=== PATIENT | female | born 1980 | race Caucasian/White ===

== ENCOUNTER → 2016-10-10 | Outpatient (CLI) | payer OTHER ==
--- NOTE | 2016-10-10 10:41 | NM ---
EXAMINATION TYPE: NM hepatobiliary w EF DATE OF EXAM: 10/10/2016 9:24 AM COMPARISON: NONE HISTORY: 35 year-old female right upper quadrant pain TECHNIQUE: After the intravenous administration of 5.2 mCi Tc 99m Mebrofenin hepatobiliary scintigrap hy is performed. Immediate images post injection. FINDINGS: There is satisfactory initial accumulation of tracer by the liver. The gallbladder is visualized wit hin 8 minutes. The small bowel activity is noted within 8 minutes. At one hour 8 ounces of oral ens ure plus is given to mimic CCK and gallbladder ejection fraction is calculated at 62 %, in the normal range. Therefore there is no scintigraphic evidence of cystic or common bile duct obstruction to kay ggest acute cholecystitis or gallbladder dyskinesia. IMPRESSION: No scintigraphic evidence for acute/chronic cholecystitis or biliary dyskinesia. Gallbladder ejection fraction of 62%.
== END | disposition home or self-care (01) ==
LOC: RADNMMAIN 06:58
PROVIDERS: ATTEND Internal Medicine
DX: R10.11 Right upper quadrant pain (principal)
CPT/HCPCS: 78226; A9537

== ENCOUNTER 2017-03-06 17:38 | Emergency (ER) | payer OTHER ==
[2017-03-06 18:44] VITALS: BP 139/85; PULSE 93; RESP 20; TEMP 98
--- NOTE | 2017-03-06 19:15 | ED ---
Wound/Laceration HPI - General Chief Complaint: Wound/Laceration Stated Complaint: lac rt thigh Time Seen by Provider: 03/06/17 18:41 Source: patient, family Mode of arrival: ambulatory Limitations: no limitations - History of Present Illness Initial Comments: 36-year-old female patient presented to emergency department today for evaluation of a laceration to her right thigh. Patient states that she was backyard, states that she tripped over a weed whacker and cut her thigh on a dry wall knife. She states she has been able to get the bleeding stopped. She denies hitting her head or losing consciousness. She states that she believes her tetanus is up-to-date within the last 5 years. She denies any bony tenderness or difficulty with range of motion to the leg. Denies any numbness or tingling in the leg. She denies any other injuries. Patient denies any headache, neck pain, back pain, chest pain, shortness of breath, dizziness, weakness, abdominal pain, nausea, vomiting, or difficulties with bowel movements or urination. - Related Data Allergies Allergy/AdvReac Type Severity Reaction Status Date / Time No Known Allergies Allergy Verified 03/06/17 18:44 Review of Systems ROS Statement: Those systems with pertinent positive or pertinent negative responses have been documented in the HPI. ROS Other: All systems not noted in ROS Statement are negative. Past Medical History Past Medical History: GERD/Reflux, Hyperlipidemia Additional Past Medical History / Comment(s): pneumothorax/chest tube when she was 13 History of Any Multi-Drug Resistant Organisms: None Reported Additional Past Surgical History / Comment(s): abdominoplasty, breast augmentation, chest tube Past Psychological History: ADD/ADHD Smoking Status: Never smoker Past Alcohol Use History: Occasional Past Drug Use History: None Reported General Exam Limitations: no limitations General appearance: alert, in no apparent distress, other (This is a well- developed, well-nourished adult female patient in no acute distress. Vital signs upon arrival were temperature 98F, pulse 93, respirations 20, blood pressure 139/85, pulse ox 99% on room air.) Head exam: Present: atraumatic, normocephalic, normal inspection Eye exam: Present: normal appearance, PERRL, EOMI. Absent: scleral icterus, conjunctival injection, periorbital swelling ENT exam: Present: normal exam, normal oropharynx, mucous membranes moist Neck exam: Present: normal inspection, full ROM, other (Nontender, no step-off, no deformity to firm midline palpation of the posterior cervical spine. Full range of motion without pain or limitation.). Absent: tenderness, meningismus, lymphadenopathy Respiratory exam: Present: normal lung sounds bilaterally. Absent: respiratory distress, wheezes, rales, rhonchi, stridor Cardiovascular Exam: Present: regular rate, normal rhythm, normal heart sounds. Absent: systolic murmur, diastolic murmur, rubs, gallop, clicks GI/Abdominal exam: Present: soft, normal bowel sounds. Absent: distended, tenderness, guarding, rebound, rigid Extremities exam: Present: full ROM, normal capillary refill, other (4 cm, gaping laceration to the right anterior thigh, fatty layer involved, no muscle involvement. Skin otherwise is pink, warm, and dry. Cap refill less than 3 seconds. Post tibial pulses are intact and 2+ bilateral.). Absent: tenderness , pedal edema, joint swelling, calf tenderness Back exam: Present: normal inspection, other (Nontender, no step-off, no deformity to firm midline palpation of the thoracic and lumbar vertebrae. Full range of motion without pain or limitation.). Absent: tenderness, vertebral tenderness Neurological exam: Present: alert, oriented X3, CN II-XII intact Psychiatric exam: Present: normal affect, normal mood Skin exam: Present: warm, dry, intact, normal color. Absent: rash Course Vital Signs 03/06/17 18:41 Temperature 98 F Pulse Rate 93 Respiratory 20 Rate Blood Pressure 139/85 O2 Sat by Pulse 99 Oximetry Procedures - Laceration Laceration #1 Consent Obtained: verbal consent Time Out Performed: Yes Indication: laceration Site: lower extremity (Right anterior thigh) Size (cm): 4 Description: linear Depth: simple, single layer (Involves fatty tissue) Anesthetic Used: lidocaine 1% Anesthesia Technique: local infiltration Amount (mls): 10 Pre-repair: irrigated extensively Type of Sutures: nylon Size of Sutures: 4-0 (4 sutures), 5-0 (4 sutures), other (Patient requested smaller sutures to decrease scarring.) Number of Sutures: 8 Technique: simple, interrupted Patient Tolerated Procedure: well, no complications Medical Decision Making - Medical Decision Making 36-year-old female patient presented for evaluation of a laceration to her right anterior thigh. Laceration was repaired after being cleaned. Patient reported she had a tetanus within the last 5 years. She was instructed to return here in 14 days to have the sutures removed. She is instructed to monitor for signs or symptoms of infection. She is instructed to follow-up with her primary care physician for recheck in 1-2 days. She is instructed return here immediately for any new, worsening, or concerning symptoms. She verbalized understanding and agreement with this plan. Disposition Clinical Impression: Laceration of right thigh Disposition: HOME SELF-CARE Condition: Good Instructions: Care For Your Stitches (ED), Laceration (ED) Additional Instructions: Keep area clean and dry. Wash twice daily with warm soap and water. Monitor for signs and symptoms of infection including redness, swelling, drainage of pus , fevers, or chills. Return in 14 days to have his stitches taken out. Follow up with her primary care physician for recheck in 1-2 days. Return here immediately for any new, worsening, or concerning symptoms. Referrals: Tonio Chan MD [Primary Care Provider] - 1-2 days Time of Disposition: 19:15
== END 2017-03-06 19:26 | disposition home or self-care (01) ==
LOC: EC 17:38
DX: S71.111A Laceration without foreign body, right thigh, initial encounter (principal); W26.0XXA Contact with knife, initial encounter; Y92.096 Garden or yard of other non-institutional residence as the place of occurrence of the external cause
CPT/HCPCS: 12002; 99282

== ENCOUNTER → 2017-07-01 | Outpatient (CLI) | payer OTHER ==
[2017-07-01 12:14] LABS: Basophils % (A) 1 %; Eosinophils # (A) 0.1 k/uL (0-0.7); Eosinophils % (A) 1 %; HCT 41.6 % (34.0-46.0); HGB 13.6 gm/dL (11.4-16.0); Lymphocytes # (A) 1.6 k/uL (1.0-4.8); Lymphocytes % (A) 28 %; MCHC 32.7 g/dL (31.0-37.0); MCV 85.9 fL (80.0-100.0); Mean Platelet Volume 6.3; Monocytes # (A) 0.3 k/uL (0-1.0); Monocytes % (A) 5 %; Neutrophils # (A) 3.6 k/uL (1.3-7.7); Neutrophils % (A) 64 %; Platelet Count 332 k/uL (150-450); RBC 4.85 m/uL (3.80-5.40); RDW 12.4 % (11.5-15.5); WBC 5.7 k/uL (3.8-10.6)
== END | disposition home or self-care (01) ==
LOC: LABPAT 11:49
PROVIDERS: ATTEND Obstetrics & Gynecology
DX: Z01.818 Encounter for other preprocedural examination (principal); N92.0 Excessive and frequent menstruation with regular cycle
CPT/HCPCS: 36415; 85025

== ENCOUNTER 2017-07-02 08:24 | Day surgery (SDC) | payer OTHER ==
[2017-06-24 17:15] VITALS: BMI 27.1
--- NOTE | 2017-07-01 17:24 | HP ---
HISTORY AND PHYSICAL Surgery on July 02, 2017. HISTORY OF PRESENT ILLNESS: The patient is a 36-year-old 3, para 2-0-1-2, who presented to the office for her routine annual exam with complaints of significantly increasing menorrhagia with dysmenorrhea. She finds that her cycles are extraordinarily heavy with clots. She has not tolerated hormonal contraceptives in the past and has had a tubal ligation. She additionally occasionally has some intermenstrual spotting. As a result, she had requested treatment with diagnostic hysteroscopy and NovaSure endometrial ablation. Endometrial biopsy performed in the office was benign in nature. PAST MEDICAL HISTORY: Significant for ADHD and a history of a spontaneous pneumothorax in 1992. SURGICAL HISTORY: Significant for D and C in 2006, tubal ligation in 2013 as well as liposuction, abdominoplasty and bilateral breast augmentation surgery in 2013. There were no anesthetic concerns. OBSTETRICAL HISTORY: 3, para 2-0-1-2 with 2 term vaginal deliveries and 1 early miscarriage that required D and C. Method of contraception is tubal ligation. GYNECOLOGIC HISTORY: Unremarkable with no history of any infections to include STDs. FAMILY HISTORY: Noncontributory. SOCIAL HISTORY: The patient is and is a nonsmoker. She works at [employer] and has no other social concerns. CURRENT MEDICATIONS: Include Adderall daily and Protonix daily. ALLERGIES: No known drug allergies. REVIEW OF SYSTEMS: As confined to history of present illness. PHYSICAL EXAMINATION: Vital signs are stable. The patient is afebrile. In general, this is a well- developed, well-nourished white female in no acute distress. Her heart has a regular rhythm and rate without murmur. Her lungs are clear to auscultation bilaterally in all edmond. Her abdomen is nondistended, has normoactive bowel sounds, is soft, nontender, without any palpable masses, hepatosplenomegaly, or hernias. Her extremities without any cyanosis, clubbing, or edema and are nontender to palpation bilaterally. Pelvic examination demonstrates normal external genitalia and BUS with normal vaginal mucosa and cervix. There is no cervical motion tenderness. The uterus is approximately 4-5 weeks in size, mid plane, mobile, nontender, and normal in shape. The adnexa are normal nontender without mass bilaterally. ASSESSMENT AND PLAN: Menorrhagia: We discussed multiple different options for treatment and the patient has requested diagnostic hysteroscopy with NovaSure endometrial ablation. The risks and complications of the procedure have been entirely discussed including the risks for bleeding, bleeding requiring transfusion, infection, and injury to local structures to specifically include uterine perforation, Asherman syndrome, and subsequent hematometra. She has understood all of these concerns and has agreed to proceed. At this time, we are scheduled for the above procedure on the morning of Sunday, July 02, 2017. MMODL / IJN: [id number] /
[~2017-07-02 08:24] MED LIST: DEXAMETHASONE SOD PHOSPHATE 10 MG/ML 1 ML VIAL IV ONE; HYDROmorphone 0.5 MG/0.5 ML SYRINGE IVP PRN; LACTATED RINGERS 1,000 ML IV SCH; LIDOCAINE 1% 20 ML VIAL (10MG/ML) FOR IV START INTRADERMA PRN; ONDANSETRON 4 MG/2 ML VIAL IVP ONE; Pre Op ABX Message 1 EACH MISC MISCELLANE ONE; SCOPOLAMINE 1.5MG/72HR PATCH TRANSDERM ONE
[2017-07-02 09:28] VITALS: RESP 16
[2017-07-02] MEDS ORDERED: LACTATED RINGERS 1,000 ML IV ONE ×2 (09:36)
[2017-07-02] MEDS ORDERED: Acetaminophen-Codeine 300-30mg TAB PO PRN ×2 (10:08)
[2017-07-02] MEDS ORDERED: diphenhydrAMINE 50 MG/ML 1 ML VIAL IVP PRN (10:08)
[2017-07-02] MEDS ORDERED: ONDANSETRON 4 MG/2 ML VIAL IVP PRN (10:08)
[2017-07-02] MEDS ORDERED: SIMETHICONE 80 MG CHEWABLE PO PRN (10:08)
[2017-07-02] MEDS ORDERED: METOCLOPRAMIDE 5 MG/ML 2 ML VIAL IVP PRN (10:08)
[2017-07-02] MEDS ORDERED: KETOROLAC 30 MG/ML 1 ML VIAL IVP PRN (10:08)
[2017-07-02] MEDS ORDERED: IBUPROFEN 600 MG TAB PO PRN (10:08)
[2017-07-02] MEDS ORDERED: LIDOCAINE 1% INJ 10MG/ML (20 ML MDV) ONE (10:13)
[2017-07-02] MEDS ORDERED: SUCCINYLCHOLINE CHLORIDE 100 MG/5 ML SYR IV ONE (10:13)
[2017-07-02] MEDS ORDERED: MIDAZOLAM 2 MG/2 ML VIAL ONE (10:13)
[2017-07-02] MEDS ORDERED: PROPOFOL 10 MG/ML 20 ML VIAL IV ONE (10:13)
[2017-07-02] MEDS ORDERED: fentaNYL (PF) 50 MCG/ML 2 ML AMP ONE (10:13)
[2017-07-02] MEDS ORDERED: KETOROLAC 30 MG/ML 1 ML VIAL ONE (10:13)
[2017-07-02] MEDS ORDERED: LACTATED RINGERS 1,000 ML IV SCH (10:15)
--- NOTE | 2017-07-02 10:44 | P.OP ---
Date of Procedure: 07/02/17 Preoperative Diagnosis: #1. Menorrhagia Postoperative Diagnosis: Same Procedure(s) Performed: #1. Diagnostic hysteroscopy #2. Endometrial curettage #3. NovaSure endometrial ablation Anesthesia: [facility] Surgeon: Martin Borjas Estimated Blood Loss (ml): 5 IV fluids (ml): 300 Urine output (ml): 80 Pathology: other (Endometrial curettings) Condition: stable Disposition: PACU Operative Findings: Preoperative pelvic examination demonstrated a roughly 5 week slightly anteverted mobile normal shaped uterus with normal adnexa bilaterally. Intraoperatively, the uterus sounded to approximately 8 cm while the cervix was approximately 3.5 cm. Using the hysteroscope, the bilateral tubal ostia regions were seen but there was a fairly significant amount of shaggy tissue throughout the fundus of the uterus obscuring actual view of the ostia. Given the degree of tissue seen, the decision was made to proceed with curettage prior to ablation. Sharp curettage did produce a small to moderate amount of tissue which was sent to pathology for diagnoses though the preoperative biopsy was benign. The settings for the NovaSure tool where a length of 5.5 cm, a width of 4.2 cm, and a total power 127 W. The run lasted for 68 seconds after which time the base unit read "procedure complete." The postprocedural hysteroscopic result appeared excellent. The patient is a candidate for vaginal hysterectomy should it become necessary in the future. Description of Procedure: The patient was prepped and draped in usual fashion after general endotracheal anesthesia was administered by the anesthesiologist. A weighted speculum was placed in the vagina and the bladder drained of approximately 80 mL of clear viviane urine. The anterior lip of the cervix was grasped with a single-tooth tenaculum and the cervix noted to be already dilated enough to admit the diagnostic hysteroscope. The scope was placed to the fundus and thorough hysteroscopy carried out demonstrating a fairly significant amount of shaggy tissue throughout the endometrial cavity, particularly in the fundus. The tubal regions were seen though the ostia were not directly visualized secondary to the amount of endometrial tissue. I decision was made proceed with curettage. A #19 Hanks dilator was easily introduced through the cervix. A sharp curette was then introduced to the fundus and thorough circumferential curettage carried out onto a Telfa in the vagina. The tissue was sent to pathology for diagnoses. The NovaSure tool was placed into the endometrial cavity, opened, and seated well. The settings for the tool were as noted above with a length of 5.5 cm, a width of 4.2 cm, and a total power of 127 W. The cavity check was attempted and passed without difficulty. The tool was enabled and the run was started. After a total run time was 68 seconds, the tool disengaged and the base unit read "procedure complete.". The tool was closed, removed, and discarded. The diagnostic scope was replaced and the endometrial cavity with superior findings as noted above. All instrumentation was then removed. There was a small amount of bleeding from each of the tenaculum sites which was made hemostatic with pressure. Estimated blood loss for the entire case was less than 5 mL. There are no complications. All sponge, instrument, and needle counts were correct. The patient tolerated the procedure well and proceeded to the recovery room in stable condition.
[2017-07-02 11:04] VITALS: TEMP 97
[2017-07-02 12:02] VITALS: BP 124/85; PULSE 55
== END 2017-07-02 12:08 | disposition home or self-care (01) ==
LOC: OR 08:24
PROVIDERS: ATTEND Obstetrics & Gynecology
DX: N92.0 Excessive and frequent menstruation with regular cycle (principal); N94.6 Dysmenorrhea, unspecified; Z98.51 Tubal ligation status; K21.9 Gastro-esophageal reflux disease without esophagitis; F90.9 Attention-deficit hyperactivity disorder, unspecified type; Z79.899 Other long term (current) drug therapy
CPT/HCPCS: 81025; 88305; 58563; J2250; J1100; J2405; J2001; J3010; J1885; J0330; J2704

== ENCOUNTER → 2019-06-30 | Outpatient (CLI) | payer OTHER ==
--- NOTE | 2019-06-30 12:29 | US ---
EXAMINATION TYPE: US mass soft tissue chest/back DATE OF EXAM: 06/30/2019 COMPARISON: NONE CLINICAL HISTORY: M79.89. Patient states she has recently felt 3 small lumps on her right and left lo wer back and RUQ. Left lower back/flank palpable area: superficial 1.2 x 0.9 x 1.3cm isoechoic area seen Right lower back/flank palpable area: no distinct area seen at this time RUQ intercostal palpable area: superficial 2.3 x 0.9 x 2.0cm isoechoic area seen IMPRESSION: Round area left lower back/flank and right upper quadrant are localized just below the c utaneous layer within the subcutaneous fat and isoechoic to adjacent subcutaneous fat. Focal subcutan eous lipoma strongly favored. No suspicious vascularity or shadowing noted.
== END | disposition home or self-care (01) ==
LOC: RADUSWWP 10:59
PROVIDERS: ATTEND Family Medicine
DX: M79.89 Other specified soft tissue disorders (principal)

== ENCOUNTER → 2020-07-19 | Outpatient (CLI) | payer OTHER ==
--- NOTE | 2020-07-20 10:51 | MM ---
Reason for exam: screening (asymptomatic). Last mammogram was performed 5 years and 4 months ago. History: Saline implants in both breasts, 2014. Took hormonal contraceptives for 7 years. Physical Findings: A clinical breast exam by your physician is recommended on an annual basis and results should be correlated with mammographic findings. MG 3D Screen Mammo Imp/Cad Bilateral CC, MLO, and ID view(s) were taken. Prior study comparison: March 30, 2015, bilateral MG 3d screen mammo imp/cad. There are scattered fibroglandular densities. No significant changes when compared with prior studies. ASSESSMENT: Benign, BI-RAD 2 RECOMMENDATION: Routine screening mammogram of both breasts in 1 year.
== END | disposition home or self-care (01) ==
LOC: RADMAMWWP 10:50
PROVIDERS: ATTEND Family Medicine
DX: Z12.31 Encounter for screening mammogram for malignant neoplasm of breast (principal); Z98.82 Breast implant status
CPT/HCPCS: 77063; 77067

== ENCOUNTER → 2020-12-13 | Day surgery (SDC) | payer OTHER ==
[2020-12-08 12:35] VITALS: BMI 29.9
[~2020-12-13] MED LIST changes: -DEXAMETHASONE SOD PHOSPHATE 10 MG/ML 1 ML VIAL IV ONE; -HYDROmorphone 0.5 MG/0.5 ML SYRINGE IVP PRN; +LACTATED RINGERS 1,000 ML IV ONE; -LACTATED RINGERS 1,000 ML IV SCH; -LIDOCAINE 1% 20 ML VIAL (10MG/ML) FOR IV START INTRADERMA PRN; -ONDANSETRON 4 MG/2 ML VIAL IVP ONE; +PROPOFOL 10 MG/ML 20 ML VIAL IV ONE; -Pre Op ABX Message 1 EACH MISC MISCELLANE ONE; -SCOPOLAMINE 1.5MG/72HR PATCH TRANSDERM ONE; +fentaNYL (PF) 50 MCG/ML 2 ML AMP ONE
[2020-12-13 08:57] VITALS: TEMP 97.4
--- NOTE | 2020-12-13 09:33 | P.GSHP ---
History of Present Illness H&P Date: 12/13/20 Chief Complaint: GERD Patient here today for upper endoscopy. Patient with history of chronic reflux. She is currently taking omeprazole 40 mg daily. Some breakthrough symptoms with that. No dysphagia. Last EGD 2011 showed GERD and reflux esophagitis. Past Medical History Past Medical History: GERD/Reflux, Hyperlipidemia, Hypertension Additional Past Medical History / Comment(s): Spontaneous pneumothorax/chest tube when she was 13. History of Any Multi-Drug Resistant Organisms: None Reported Past Surgical History: Breast Surgery, Tubal Ligation, Uterine Ablation Additional Past Surgical History / Comment(s): abdominoplasty, breast augmentation, chest tube, D&C, EGD Past Anesthesia/Blood Transfusion Reactions: Family History of Problems w/ Anesthesia, Motion Sickness, Postoperative Nausea & Vomiting (PONV) Additional Past Anesthesia/Blood Transfusion Reaction / Comment(s): Mother has PONV Smoking Status: Never smoker - Past Family History Mother Family Medical History: Cancer, Deep Vein Thrombosis (DVT), Pulmonary Embolus Additional Family Medical History / Comment(s): Melanoma Father Family Medical History: Deep Vein Thrombosis (DVT), Pulmonary Embolus Brother(s) Family Medical History: Deep Vein Thrombosis (DVT) Medications and Allergies Home Medications Medication Instructions Recorded Confirmed Type Dextroamphetamine/Amphetamine 10 mg PO DAILY@1200 06/24/17 12/08/20 History [Adderall] Dextroamphetamine/Amphetamine 20 mg PO DAILY 06/24/17 12/08/20 History [Adderall] Omeprazole [PriLOSEC] 40 mg PO [id number] 06/24/17 12/08/20 History Atorvastatin [Lipitor] 40 mg PO HS 12/08/20 12/08/20 History Hydrochlorothiazide 12.5 mg PO DAILY PRN 12/08/20 12/08/20 History [hydroCHLOROthiazide] Allergies Allergy/AdvReac Type Severity Reaction Status Date / Time No Known Allergies Allergy Verified 12/08/20 12:20 Surgical - Exam Vital Signs Temp Pulse Resp BP Pulse Ox 97.4 F L 83 18 150/89 98 12/13/20 08:56 12/13/20 08:56 12/13/20 08:56 12/13/20 08:56 12/13/20 08:56 Physical exam: General: Well-developed, well-nourished HEENT: Normocephalic, sclerae nonicteric Abdomen: Nontender, nondistended Extremities: No edema Neuro: Alert and oriented Assessment and Plan (1) GERD (gastroesophageal reflux disease) Narrative/Plan: Will proceed with upper endoscopy Current Visit: Yes Status: Acute Code(s): K21.9 - GASTRO-ESOPHAGEAL REFLUX DISEASE WITHOUT ESOPHAGITIS SNOMED Code(s): 508995767
--- NOTE | 2020-12-13 09:43 | P.PCN ---
Date of Procedure: 12/13/20 Procedure(s) Performed: Preoperative Dx: GERD Postoperative Dx: Gastritis, hiatal hernia, distal esophagitis Procedure: EGD with Bx Anesthesia: Sedation Endoscopist: Dr. Tate Specimens:, Distal esophagus Endoscopic Procedure: The patient was on the endoscopy table in the left decubitus position. The Olympus gastroscope was inserted into the oropharynx and passed under direct visualization to the region of the third portion of the duodenum. From that point the scope was slowly withdrawn inspecting all surfaces carefully. There were no neoplastic inflammatory or polypoid lesions throughout the duodenum. The pylorus was widely patent. The stomach was carefully inspected. There was gastritis present. A biopsy of the antrum took place to rule out H. pylori. Retroflexion revealed a small moderate size hiatal hernia. The scope was withdrawn into the esophagus. The GE junction was present 3 cm above the diaphragmatic hiatus. Just above the GE junction there were 3 small linear erosions present measuring less than 1 cm. These were non- circumferential. The remainder the esophagus appeared normal. The patient was then taken to the recovery room in stable condition per anesthesia guidelines. Recommendations: Await biopsy results. Continue antiacid therapy. Will discuss surgical options further with the patient
[2020-12-13 10:11] VITALS: RESP 16
[2020-12-13 10:12] VITALS: BP 117/78; PULSE 65
== END ==
LOC: ORWHC2ENDO 08:40
PROVIDERS: ATTEND Surgery
DX: K21.00 Gastro-esophageal reflux disease with esophagitis, without bleeding (principal); K29.50 Unspecified chronic gastritis without bleeding; K44.9 Diaphragmatic hernia without obstruction or gangrene; E78.5 Hyperlipidemia, unspecified; I10 Essential (primary) hypertension; Z79.899 Other long term (current) drug therapy; Z80.9 Family history of malignant neoplasm, unspecified; K64.9 Unspecified hemorrhoids
CPT/HCPCS: 43239; 81025; 88305; J3010; J2704

== ENCOUNTER → 2021-04-05 | Outpatient (CLI) | payer OTHER ==
--- NOTE | 2021-04-05 14:33 | XR ---
EXAMINATION TYPE: XR ribs LT DATE OF EXAM: 04/05/2021 COMPARISON: None HISTORY: Left rib pain TECHNIQUE: 2 view left RIBS FINDINGS: No acute fractures are evident. No pneumothorax is evident on these images. IMPRESSION: 1. Normal two-view left RIBS
== END | disposition home or self-care (01) ==
LOC: RADXRMAIN 10:22
PROVIDERS: ATTEND Internal Medicine
DX: R07.81 Pleurodynia (principal)

== ENCOUNTER 2023-05-11 20:43 | Emergency (ER) | payer OTHER ==
[2023-05-11 21:14] VITALS: TEMP 97.8
[2023-05-11] MEDS ORDERED: KETOROLAC 15 MG/ML 1 ML VIAL IVP STA (23:13)
[2023-05-11] MEDS ORDERED: ONDANSETRON 4 MG/2 ML VIAL IVP STA (23:13)
[2023-05-11] MEDS ORDERED: SODIUM CHLORIDE 0.9% 1,000 ML IV STA (23:13)
[2023-05-12 00:12] LABS: Basophils # (A) 0.1 k/uL (0-0.2); Basophils % (A) 0 %; Eosinophils # (A) 0.1 k/uL (0-0.7); Eosinophils % (A) 1 %; HCT 42.8 % (34.0-46.0); HGB 14.4 gm/dL (11.4-16.0); Lymphocytes # (A) 2.1 k/uL (1.0-4.8); Lymphocytes % (A) 18 %; MCH 28.3 pg (25.0-35.0); MCHC 33.5 g/dL (31.0-37.0); MCV 84.4 fL (80.0-100.0); Mean Platelet Volume 7.1; Monocytes # (A) 0.6 k/uL (0-1.0); Monocytes % (A) 5 %; Neutrophils # (A) 8.7 k/uL (1.3-7.7); Neutrophils % (A) 74 %; Platelet Count 377 k/uL (150-450); RBC 5.07 m/uL (3.80-5.40); WBC 11.7 k/uL (3.8-10.6)
[2023-05-12 00:20] LABS: Potassium 4.1 mmol/L (3.5-5.1)
[2023-05-12 00:22] LABS: AST 28 U/L (14-36); African American GFR (CKD) >90 (>60 ml/min/1.73 sqM); Albumin 4.8 g/dL (3.5-5.0); Alkaline Phosphatase 56 U/L (38-126); Amylase 73 U/L (30-110); Anion Gap 12 mmol/L; Blood Urea Nitrogen 18 mg/dL (7-17); Calcium 10.1 mg/dL (8.4-10.2); Carbon Dioxide 27 mmol/L (22-30); Chloride 101 mmol/L (98-107); Glucose 108 mg/dL (74-99); Lipase 114 U/L (23-300); Non-African American GFR(CKD) 83 (>60 ml/min/1.73 sqM); Sodium 140 mmol/L (137-145); Total Bilirubin 0.7 mg/dL (0.2-1.3); Total Protein 7.9 g/dL (6.3-8.2)
[2023-05-12 00:23] LABS: ALT 30 U/L (4-34)
[2023-05-12 00:40] LABS: Appearance,Urine HAZY (Clear); Color,Urine Yellow
[2023-05-12 00:41] LABS: Bilirubin,Urine Negative (Negative); Blood,Urine Large (Negative); Glucose,Urine (UA) Negative (Negative); Ketones,Urine Trace (Negative); Leukocyte Esterase,Urine Moderate (Negative); Nitrite,Urine Negative (Negative); PH, Urine 5.5 (5.0-8.0); Protein,Urine 1+ (Negative); Urobilinogen,Urine 0.2 mg/dL (<2.0)
[2023-05-12 00:44] LABS: Amorphous Sediment,Urine Occasional /hpf; Bacteria,Urine Moderate /hpf; Calcium Oxalate Crystals,Urine Occasional /hpf; Hyaline Casts,Urine 4 /lpf (0-2); RBC,Urine 2 /hpf (0-5); Squamous Epithelial Cell,Urine 4 /hpf (0-4); WBC,Urine 13 /hpf (0-5)
[2023-05-12 00:45] LABS: Mucus,Urine Many /hpf
--- NOTE | 2023-05-12 02:05 | CT ---
EXAM: CT Abdomen and Pelvis With Intravenous Contrast CLINICAL HISTORY: RLQ abdominal pain TECHNIQUE: Axial computed tomography images of the abdomen and pelvis with intravenous contrast. CTDI is 29.8 mGy and DLP is 1382.8 mGy-cm. This CT exam was performed using one or more of the following dose reduction techniques: automated exposure control, adjustment of the mA and/or kV according to patient size, and/or use of iterative reconstruction technique. COMPARISON: No relevant prior studies available. FINDINGS: Lung bases: Unremarkable. No mass. No consolidation. ABDOMEN: Liver: Unremarkable. No mass. Gallbladder and bile ducts: Unremarkable. No calcified stones. No ductal dilation. Pancreas: Unremarkable. No mass. No ductal dilation. Spleen: Unremarkable. No splenomegaly. Adrenals: Unremarkable. No mass. Kidneys and ureters: Unremarkable. No solid mass. No hydronephrosis. Stomach and bowel: No bowel obstruction. No asymmetric bowel mucosal abnormality. Mild stool burden. No diverticulitis. PELVIS: Appendix: A normal caliber appendix is noted extending inferiorly from the cecum in the right lower quadrant. No periappendiceal fat stranding. Bladder: Unremarkable. No mass. Reproductive: Uterus is normal in caliber with hypoattenuating areas of the fundus measuring up to 1.6 x 2.3 x 2.2 cm near the region of the left cornea. No adnexal cystic changes. ABDOMEN and PELVIS: Intraperitoneal space: Unremarkable. No free air. No significant fluid collection. Bones/joints: No acute fracture. No dislocation. Soft tissues: Unremarkable. Vasculature: Unremarkable. No abdominal aortic aneurysm. Lymph nodes: Unremarkable. No enlarged lymph nodes. IMPRESSION: 1. A normal caliber appendix is noted extending inferiorly from the cecum in the right lower quadrant. No periappendiceal fat stranding. 2. No bowel obstruction. No asymmetric bowel mucosal abnormality. Mild stool burden. No diverticulitis. No free intraperitoneal fluid or pneumoperitoneum. 3. Uterus is normal in caliber with hypoattenuating areas of the fundus measuring up to 1.6 x 2.3 x 2.2 cm near the region of the left cornea. This may represent a poorly vascularized fibroids or cystic changes in the endometrium. No hydrosalpinx suspected. No ovarian or adnexal cysts. The clinical significance of this finding is indeterminant.
--- NOTE | 2023-05-12 02:15 | ED ---
Abdominal Pain HPI - General Chief Complaint: Abdominal Pain Stated Complaint: Abdominal Pain Time Seen by Provider: 05/11/23 22:59 Source: patient Mode of arrival: ambulatory Limitations: no limitations - History of Present Illness Initial Comments: 42-year-old female presenting with chief complaint of right lower quadrant pain. Patient states that the pain started yesterday, pain was worse yesterday, however the ER it had a long wait time and she did not want to wait to be evaluated so she decided to come back today, she states that the pain has improved today. Patient states that she has had this pain in the past and it has been intermittent for the last year. Admits to nausea. No fever, chills, vomiting, diarrhea, vaginal bleeding or discharge, chest pain, difficulty breathing, injury or trauma. She currently has a UTI and is being treated with Macrobid. - Related Data Home Medications Medication Instructions Recorded Confirmed Dextroamphetamine/Amphetamine 10 mg PO DAILY@1200 06/24/17 12/08/20 [Adderall] Dextroamphetamine/Amphetamine 20 mg PO DAILY 06/24/17 12/08/20 [Adderall] Omeprazole [PriLOSEC] 40 mg PO AC-BRKFST 06/24/17 12/08/20 Atorvastatin [Lipitor] 40 mg PO HS 12/08/20 12/08/20 hydroCHLOROthiazide 12.5 mg PO DAILY PRN 12/08/20 12/08/20 Allergies Allergy/AdvReac Type Severity Reaction Status Date / Time No Known Allergies Allergy Verified 05/11/23 20:54 Review of Systems ROS Statement: Those systems with pertinent positive or pertinent negative responses have been documented in the HPI. ROS Other: All systems not noted in ROS Statement are negative. Past Medical History Past Medical History: GERD/Reflux, Hyperlipidemia, Hypertension Additional Past Medical History / Comment(s): Spontaneous pneumothorax/chest tube when she was 13. History of Any Multi-Drug Resistant Organisms: None Reported Past Surgical History: Breast Surgery, Tubal Ligation, Uterine Ablation Additional Past Surgical History / Comment(s): abdominoplasty, breast augmentation, chest tube, D&C, EGD Past Anesthesia/Blood Transfusion Reactions: Family History of Problems w/ Anesthesia, Motion Sickness, Postoperative Nausea & Vomiting (PONV) Additional Past Anesthesia/Blood Transfusion Reaction / Comment(s): Mother has PONV Past Psychological History: ADD/ADHD Smoking Status: Never smoker Past Alcohol Use History: Occasional Past Drug Use History: None Reported - Past Family History Mother Family Medical History: Cancer, Deep Vein Thrombosis (DVT), Pulmonary Embolus Additional Family Medical History / Comment(s): Melanoma Father Family Medical History: Deep Vein Thrombosis (DVT), Pulmonary Embolus Brother(s) Family Medical History: Deep Vein Thrombosis (DVT) General Exam Limitations: no limitations General appearance: alert, in no apparent distress Head exam: Present: atraumatic, normocephalic, normal inspection Eye exam: Present: normal appearance, EOMI Neck exam: Present: normal inspection, full ROM Respiratory exam: Present: normal lung sounds bilaterally. Absent: respiratory distress, wheezes, rales, rhonchi, stridor Cardiovascular Exam: Present: regular rate, normal rhythm, normal heart sounds. Absent: systolic murmur, diastolic murmur, rubs, gallop, clicks GI/Abdominal exam: Present: soft, tenderness (Lower abdomen). Absent: distended, guarding, rebound, rigid Neurological exam: Present: alert, oriented X3 Psychiatric exam: Present: normal affect, normal mood Skin exam: Present: warm, dry, intact, normal color. Absent: rash Course Vital Signs 05/11/23 05/12/23 20:52 02:22 Temperature 97.8 F Pulse Rate 107 H 69 Respiratory 20 16 Rate Blood Pressure 124/71 131/81 O2 Sat by Pulse 100 96 Oximetry Medical Decision Making - Medical Decision Making Was pt. sent in by a medical professional or institution (, PA, PERSONAL SHOPPER, urgent care, hospital, or jail...) When possible be specific @ -No Did you speak to anyone other than the patient for history (EMS, parent, family, police, friend...)? What history was obtained from this source @ -No Did you review nursing and triage notes (agree or disagree)? Why? @ -I reviewed and agree with nursing and triage notes Were old charts reviewed (outside hosp., previous admission, EMS record, old EKG, old radiological studies, urgent care reports/EKG's, jail records)? Report findings @ -No old charts were reviewed Differential Diagnosis (chest pain, altered mental status, abdominal pain women, abdominal pain men, vaginal bleeding, weakness, fever, dyspnea, syncope, headache, dizziness, GI bleed, back pain, seizure, CVA, palpatations, mental health, musculoskeletal)? @ -[facility] Differential Abdominal Pain Women: Appendicitis, Cholecystitis, diverticulosis, ischemic bowel, pancreatitis, hepatitis, UTI, gastroenteritis, AAA, incarcerated hernia, bowel obstruction, constipation, inflammatory bowel, hepatitis, peptic ulcer disease, splenic infa rction, perforated viscus, vulvitis, ovarian torsion, PID, kidney stone, placenta abruption... This is not meant to be an all-inclusive list EKG interpreted by me (3pts min.). @ -As above X-rays interpreted by me (1pt min.). @ -None done CT interpreted by me (1pt min.). @ -A normal-caliber appendix is noted extending inferiorly from the cecum in the right lower quadrant. No periappendiceal fat stranding. No bowel obstruction. No asymmetry bowel mucosal abnormality. Mild stool Birden. No diverticulitis. No free intraperitoneal fluid or pneumoperitoneum. Uterus is normal in caliber with hypoattenuating areas of the fundus measuring up to 1.6 x 2.3 x 2.2 cm near the region of the left cornea. This may represent a poorly vascularized fibroids or cystic changes in the endometrium. No hydrosalpinx suspected. No ovarian or adnexal cysts. U/S interpreted by me (1pt. min.). @ -None done What testing was considered but not performed or refused? (CT, X-rays, U/S, labs)? Why? @ -None What meds were considered but not given or refused? Why? @ -None Did you discuss the management of the patient with other professionals (professionals i.e. , PA, PERSONAL SHOPPER, lab, RT, psych nurse, vp digital marketing social media and crm, communication skills instructor, teacher, custom protection officer, assistant case manager)? Give summary @ -No Was smoking cessation discussed for >3mins.? @ -No Was critical care preformed (if so, how long)? @ -No Were there social determinants of health that impacted care today? How? (Homelessness, low income, unemployed, alcoholism, drug addiction, transportation, low edu. Level, literacy, decrease access to med. care, fpc, rehab)? @ -No Was there de-escalation of care discussed even if they declined (Discuss DNR or withdrawal of care, Hospice)? DNR status @ -No What co-morbidities impacted this encounter? (DM, HTN, Smoking, COPD, CAD, Cancer, CVA, ARF, Chemo, Hep., AIDS, mental health diagnosis, sleep apnea, morbid obesity)? @ -None Was patient admitted / discharged? Hospital course, mention meds given and route, prescriptions, significant lab abnormalities, going to OR and other pertinent info. @ -42-year-old female presenting with chief complaint of right lower quadrant pain. Patient is currently being treated for UTI with Macrobid. History and physical exam were conducted. WBC 11.7. BUN 18. Urine shows signs of UTI p atient is a [address] shows no signs of appendicitis. There are areas that may represent fibroids or cystic changes to the endometrium. Patient is educated on today's findings. Instructed to follow-up with NUCLEAR TECHNICIAN and PCP. Continue taking antibiotics as prescribed. Follow-up with PCP. Report back to ER with any new or worsening symptoms. Discussed return p arameters and answered all questions. Patient conveyed verbal understanding and agreed to the plan. I discussed this case in detail with my attending Dr. Garcia Undiagnosed new problem with uncertain prognosis? @ -No Drug Therapy requiring intensive monitoring for toxicity (Heparin, Nitro, Insulin, Cardizem)? @ -No Were any procedures done? @ -No Diagnosis/symptom? @ -UTI, abdominal pain Acute, or Chronic, or Acute on Chronic? @ -Acute Uncomplicated (without systemic symptoms) or Complicated (systemic symptoms)? @ -Uncomplicated Side effects of treatment? @ -No Exacerbation, Progression, or Severe Exacerbation? @ -No Poses a threat to life or bodily function? How? (Chest pain, USA, DC, pneumonia, PE, COPD, DKA, ARF, appy, cholecystitis, CVA, Diverticulitis, Homicidal, Suicidal, threat to staff... and all critical care pts) @ -Low likelihood - Lab Data Result diagrams: 05/11/23 23:43 05/11/23 23:43 Lab Results 05/11/23 05/11/23 05/11/23 Range/Units 23:43 23:43 23:43 WBC 11.7 H (3.8-10.6) k/uL RBC 5.07 (3.80-5.40) m/uL Hgb 14.4 (11.4-16.0) gm/dL Hct 42.8 (34.0-46.0) % MCV 84.4 (80.0-100.0) fL MCH 28.3 (25.0-35.0) pg MCHC 33.5 (31.0-37.0) g/dL RDW 13.0 (11.5-15.5) % Plt Count 377 (150-450) k/uL MPV 7.1 Neutrophils % 74 % Lymphocytes % 18 % Monocytes % 5 % Eosinophils % 1 % Basophils % 0 % Neutrophils # 8.7 H (1.3-7.7) k/uL Lymphocytes # 2.1 (1.0-4.8) k/uL Monocytes # 0.6 (0-1.0) k/uL Eosinophils # 0.1 (0-0.7) k/uL Basophils # 0.1 (0-0.2) k/uL Sodium 140 (137-145) mmol/L Potassium 4.1 (3.5-5.1) mmol/L Chloride 101 (98-107) mmol/L Carbon Dioxide 27 (22-30) mmol/L Anion Gap 12 mmol/L BUN 18 H (7-17) mg/dL Creatinine 0.86 (0.52-1.04) mg/dL Est GFR (CKD-EPI)AfAm >90 (>60 ml/min/1.73 sqM) Est GFR (CKD-EPI)NonAf 83 (>60 ml/min/1.73 sqM) Glucose 108 H (74-99) mg/dL Plasma Lactic Acid Emerson (0.7-2.0) mmol/L Calcium 10.1 (8.4-10.2) mg/dL Total Bilirubin 0.7 (0.2-1.3) mg/dL AST 28 (14-36) U/L ALT 30 (4-34) U/L Alkaline Phosphatase 56 (38-126) U/L Total Protein 7.9 (6.3-8.2) g/dL Albumin 4.8 (3.5-5.0) g/dL Amylase 73 (30-110) U/L Lipase 114 (23-300) U/L Urine Color Yellow Urine Appearance HAZY (Clear) Urine pH 5.5 (5.0-8.0) Ur Specific [place] 1.030 (1.001-1.035) Urine Protein 1+ H (Negative) Urine Glucose (UA) Negative (Negative) Urine Ketones Trace H (Negative) Urine Blood Large H (Negative) Urine Nitrite Negative (Negative) Urine Bilirubin Negative (Negative) Urine Urobilinogen 0.2 (<2.0) mg/dL Ur Leukocyte Esterase Moderate H (Negative) Urine RBC 2 (0-5) /hpf Urine WBC 13 H (0-5) /hpf Ur Squamous Epith Cells 4 (0-4) /hpf Calcium Oxalate Crystal Occasional H (None) /hpf Amorphous Sediment Occasional H (None) /hpf Urine Bacteria Moderate H (None) /hpf Hyaline Casts 4 H (0-2) /lpf Urine Mucus Many H (None) /hpf Urine HCG, Qual (Not Detectd) 05/11/23 05/11/23 Range/Units 23:43 23:43 WBC (3.8-10.6) k/uL RBC (3.80-5.40) m/uL Hgb (11.4-16.0) gm/dL Hct (34.0-46.0) % MCV (80.0-100.0) fL MCH (25.0-35.0) pg MCHC (31.0-37.0) g/dL RDW (11.5-15.5) % Plt Count (150-450) k/uL MPV Neutrophils % % Lymphocytes % % Monocytes % % Eosinophils % % Basophils % % Neutrophils # (1.3-7.7) k/uL Lymphocytes # (1.0-4.8) k/uL Monocytes # (0-1.0) k/uL Eosinophils # (0-0.7) k/uL Basophils # (0-0.2) k/uL Sodium (137-145) mmol/L Potassium (3.5-5.1) mmol/L Chloride (98-107) mmol/L Carbon Dioxide (22-30) mmol/L Anion Gap mmol/L BUN (7-17) mg/dL Creatinine (0.52-1.04) mg/dL Est GFR (CKD-EPI)AfAm (>60 ml/min/1.73 sqM) Est GFR (CKD-EPI)NonAf (>60 ml/min/1.73 sqM) Glucose (74-99) mg/dL Plasma Lactic Acid Emerson 1.7 (0.7-2.0) mmol/L Calcium (8.4-10.2) mg/dL Total Bilirubin (0.2-1.3) mg/dL AST (14-36) U/L ALT (4-34) U/L Alkaline Phosphatase (38-126) U/L Total Protein (6.3-8.2) g/dL Albumin (3.5-5.0) g/dL Amylase (30-110) U/L Lipase (23-300) U/L Urine Color Urine Appearance (Clear) Urine pH (5.0-8.0) Ur Specific [place] (1.001-1.035) Urine Protein (Negative) Urine Glucose (UA) (Negative) Urine Ketones (Negative) Urine Blood (Negative) Urine Nitrite (Negative) Urine Bilirubin (Negative) Urine Urobilinogen (<2.0) mg/dL Ur Leukocyte Esterase (Negative) Urine RBC (0-5) /hpf Urine WBC (0-5) /hpf Ur Squamous Epith Cells (0-4) /hpf Calcium Oxalate Crystal (None) /hpf Amorphous Sediment (None) /hpf Urine Bacteria (None) /hpf Hyaline Casts (0-2) /lpf Urine Mucus (None) /hpf Urine HCG, Qual Not Detected (Not Detectd) Disposition Clinical Impression: Abdominal pain, UTI (urinary tract infection) Disposition: HOME SELF-CARE Condition: Good Instructions (If sedation given, give patient instructions): Urinary Tract Infection in Women (ED), Abdominal Pain (ED) Additional Instructions: Follow-up with PCP and NUCLEAR TECHNICIAN. Report back to ER with any new or worsening symptoms. Continue taking antibiotics as prescribed. Is patient prescribed a controlled substance at d/c from ED?: No Referrals: Elaine Byrnes MD [Primary Care Provider] - 1-2 days Martin Borjas MD [STAFF PHYSICIAN] - 1-2 days Time of Disposition: 02:15
[2023-05-12 02:41] VITALS: BP 131/81; PULSE 69; RESP 16
== END 2023-05-12 02:24 | disposition home or self-care (01) ==
LOC: EC 20:43
DX: N39.0 Urinary tract infection, site not specified (principal); E78.5 Hyperlipidemia, unspecified; K21.9 Gastro-esophageal reflux disease without esophagitis; I10 Essential (primary) hypertension; Z79.899 Other long term (current) drug therapy
CPT/HCPCS: 99284 ×2; 96360 ×2; 36415; 80053; 82150; 83605; 83690; 85025; 81001; 81025; 87086; 74177; Q9967

== ENCOUNTER → 2024-04-21 | Outpatient (CLI) | payer OTHER ==
--- NOTE | 2024-04-27 08:31 | MM ---
Reason for Exam: Screening (asymptomatic). Last mammogram was performed 1 year(s) and 9 month(s) ago. Patient History: Menarche at age 10. First Full-Term at age 27. Hormonal Contraceptives for 7 years until age 19. 2013, Bilateral Implants. Risk Values: Tessy 5 year model risk: 0.9%. NCI Lifetime model risk: 10.6%. Prior Study Comparison: 03/30/2015 Bilateral Screening Mammogram, [facility]. 07/19/2020 Bilateral Screening Mammogram, [facility]. 07/24/2022 Bilateral MG 3D screen mammo imp/cad., [facility]. Tissue Density: There are scattered areas of fibroglandular density. Findings: Analyzed By CAD. Bilateral breast implants appear intact. Right breast: There is no suspicious group of microcalcifications or new suspicious mass. Left breast: There is no suspicious group of microcalcifications or new suspicious mass. Overall Assessment: Negative, BI-RAD 1 Management: Screening Mammogram of both breasts in [address] [facility] will attempt to contact patient to return for supplemental views and ultrasound if indicated. Patient should continue monthly self-breast exams. A clinical breast exam by your physician is recommended on an annual basis. This exam should not preclude additional follow-up of suspicious palpable abnormalities. Note on Tessy scores and lifetime risk: 1. A Tessy score greater than 3% is considered moderate risk. If this is the case, consider specialist referral to assess eligibility for a risk reducing agent. 2. If overall lifetime risk for the development of breast cancer is 20% or higher, the patient may qualify for future screening with alternating mammogram and breast MRI. [facility], , 04/27/2024 8:27 AM. Electronically signed and approved by: Vince Meneses DO
== END | disposition home or self-care (01) ==
LOC: RADMAMWWP 11:58
PROVIDERS: ATTEND Family Medicine
DX: Z12.31 Encounter for screening mammogram for malignant neoplasm of breast (principal); R92.323 Mammographic fibroglandular density, bilateral breasts
CPT/HCPCS: 77063; 77067